=== PATIENT | male | born 1980 | race Caucasian/White ===

== ENCOUNTER 2019-06-28 23:44 | Emergency (ER) | payer MEDICAID ==
[~2019-06-28] VITALS: Ht 170.2 cm; Wt 86.4 kg
[~2019-06-28 23:44] MED LIST: CYCLOBENZAPRINE5 MG PO
[2019-06-28 23:48] VITALS: Ht 170.2 cm; Wt 86.4 kg
[2019-06-28] MEDS ORDERED: BUPRENORPHIN-N1 EACH SL (23:49)
[2019-06-29 00:54] LABS: ALBUMIN 3.6 g/dL (3.4-5.0); ALKALINE PHOSPHATASE 77 U/L (46-116); ALT (SGPT) 23 U/L (10-68); BILIRUBIN - TOTAL 0.16 mg/dL (0.2-1.3); CALC OSMOLALITY 284 mosm/kg (275-300); CALCIUM 8.5 mg/dL (8.5-10.1); CARBON DIOXIDE 31.4 mmol/L (21.0-32.0); CHLORIDE - SERUM 104 mmol/L (98-107); CREATININE - SERUM 0.9 mg/dL (0.6-1.3); GLUCOSE 94 mg/dL (74-106); POTASSIUM - SERUM 3.9 mmol/L (3.5-5.1); PROTEIN - SERUM 6.9 g/dL (6.4-8.2); SODIUM 143 mmol/L (136-145); UREA NITROGEN 13 mg/dL (7-18); eGFR NON AFRICAN AMERICAN > 90 mL/min (90-120)
[2019-06-29 01:03] LABS: HEMATOCRIT 37.1 % (42.0-54.0); LYMPHOCYTES 29.4 % (15-50); MCH 29.1 pg (26.0-34.0); MCV 83.2 fL (80.0-100.0); MEAN PLATELET VOLUME 10.7 fL (7.4-10.4); NEUTROPHILS 61.5 % (40-80); PLATELET COUNT 238 10x3/uL (130-400); RBC 4.46 10x6/uL (4.20-6.10); RDW 11.9 % (11.5-14.5); WBC 6.6 10x3/uL (4.8-10.8)
[2019-06-29 01:24] LABS: APPEARANCE SL CLDY (CLEAR); BILIRUBIN NEGATIVE (NEGATIVE); COLOR YELLOW (YELLOW); EPITHELIAL CELLS OCC /hpf (0-5); GLUCOSE NEGATIVE (NEGATIVE); KETONE NEGATIVE (NEGATIVE); NITRITE NEGATIVE (NEGATIVE); PROTEIN 1+ mg/dL (NEGATIVE); SPECIFIC GRAVITY 1.015 (1.005-1.020); UROBILINOGEN NORMAL (NORMAL)
[2019-06-29 01:25] LABS: BACTERIA FEW /hpf (NONE SEEN); MUCUS <1+ /lpf (NONE SEEN)
[2019-06-29] MEDS ORDERED: MACROBID100 MG PO (01:40)
[2019-06-29] MEDS ORDERED: PHENAZOPYRIDIN100 MG PO (01:40)
[2019-06-29 01:58] VITALS: BP 124/76
== END 2019-06-29 02:00 | disposition home or self-care (01) ==
LOC: D.ER 23:44
PROVIDERS: Family Medicine
DX: N30.90 Cystitis, unspecified without hematuria (principal); R10.30 Lower abdominal pain, unspecified; N39.0 Urinary tract infection, site not specified